=== PATIENT | female | born 1980 | race Two or more races ===

== ENCOUNTER 2016-10-07 00:39 | Emergency (ER) | payer BC, MEDICAID ==
[~2016-10-07] VITALS: Ht 149.9 cm; Wt 86.2 kg
[2016-10-07] MEDS ORDERED: ALBUTEROL SULF 2.5 MG/0.5ML(0.5%) NEB SOLN NEB ONE (01:15)
[2016-10-07] MEDS ORDERED: IPRATROPIUM BROM 0.5 MG/2.5ML INH SOL NEB ONE (01:15)
[2016-10-07 01:18] LABS: Basophils # (auto) 0.1 uL; Basophils % (auto) 0.6 % (0.0-2.0); Eosinophils # (auto) 0.5 uL; Eosinophils % (auto) 3.9 % (0.0-7.0); Hemoglobin 14.2 g/dL (12.2-16.2); Lymphocytes # (auto) 3.7 uL; Lymphocytes % (auto) 27.9 % (10.0-50.0); Mean Corpuscular Hemoglobin 29.8 pg (28.0-32.0); Mean Corpuscular Hgb Conc. 33.9 g/dL (32.0-36.0); Mean Corpuscular Volume 87.9 fL (80.0-100.0); Mean Platelet Volume 8.1 fL (7.4-10.4); Monocytes # (auto) 0.7 uL; Monocytes % (auto) 5.3 % (0.0-12.0); Neutrophils # (auto) 8.3 uL; Neutrophils % (auto) 62.3 % (37.0-80.0); Platelet Count (auto) 366 10^3/uL (140-450); Red Cell Distribution Width 13.5 % (11.6-16.0); White Blood Cell 13.4 10^3/uL (4.4-10.8)
[2016-10-07 01:19] LABS: Urine RBC None Seen /hpf (0 - 4)
[2016-10-07 01:39] LABS: Urine Bilirubin Negative (Negative); Urine Blood Negative /uL (Negative); Urine Color Yellow (Yellow); Urine Glucose Normal (Normal); Urine Ketone Negative (Negative); Urine Mucus FEW (None Seen); Urine Nitrite Negative (Negative); Urine Squamous Epithelial Cell FEW /hpf (<5); Urine Urobilinogen Normal (Negative); Urine pH 5.5 (5.0-8.0)
[2016-10-07 01:40] LABS: Albumin 3.9 g/dL (3.4-5.0); Alkaline Phosphatase 83 U/L (45-117); Anion Gap 12 (5-15); Aspartate Aminotransferase 20 U/L (15-37); BUN/Creatinine Ratio 15.2; Bilirubin, Total 0.2 mg/dL (0.2-1.0); Blood Urea Nitrogen 12 mg/dL (7-18); Calcium 8.8 mg/dL (8.5-10.1); Carbon Dioxide 24 mmol/L (21-32); Chloride 108 mmol/L (98-107); GFR African American 107 mL/min; GFR Non-African American 89 mL/min; Glucose 126 mg/dL (74-106); Potassium 3.5 mmol/L (3.5-5.1); Sodium 144 mmol/L (136-145); Total Protein 7.6 g/dL (6.4-8.2)
[2016-10-07 07:12] VITALS: BP 112/70
== END 2016-10-07 07:50 | disposition home or self-care (01) ==
LOC: ER 00:41
DX: F41.0 Panic disorder [episodic paroxysmal anxiety] (principal); R00.2 Palpitations; F17.210 Nicotine dependence, cigarettes, uncomplicated
CPT/HCPCS: 36415; 71020; 80053; 81001; 81025; 84484; 85025; 85379; 93005; 94640

== ENCOUNTER 2019-02-01 02:15 | Emergency (ER) | payer MEDICAID ==
[~2019-02-01] VITALS: Ht 149.9 cm; Wt 85.7 kg
[2019-02-01 02:27] VITALS: BP 156/113
[2019-02-01] MEDS ORDERED: diphenhdrAMINE HCL 25 MG CAP PO ONE (02:30)
== END 2019-02-01 04:52 | disposition home or self-care (01) ==
LOC: ER 02:16
DX: B00.1 Herpesviral vesicular dermatitis (principal); F17.210 Nicotine dependence, cigarettes, uncomplicated

== ENCOUNTER 2025-02-16 16:45 | Inpatient (IN) | payer MEDICAID ==
[~2025-02-16] VITALS: Ht 149.9 cm; Wt 86.8 kg
--- NOTE | 2025-02-16 17:05 | ED.PDOC ---
History of Present Illness HPI Comments This is a 44-year-old female with past medical history of Graves disease presented to the ED with a chief complaint of epigastric pain, nausea, vomiting and diarrhea since Wednesday prior to this visit. The patient stated that since Wednesday she was feeling generalized weakness, nausea, vomiting not able to keep anything down the throat and diarrhea which is liquid in nature, 8-10 times per day. She also complaint of epigastric pain which is localized, colicky in nature, 6 out 10 without any aggravating or relieving factors and associated with nausea, vomiting and diarrhea. She did mentioned using Zepbound for weight loss and took 3 shots. She denies fever, dysuria, hematuria, hematemesis, blood in the stool, positive sick contact, recent traveling or tried any food from outside. 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 History Family History Family History: Unknown Social History Smoker: Cigarettes Alcohol: Denies ETOH Use Drugs: Denies Drug Use Lives In: Home Constitutional: reports: chills, weakness; denies: diaphoresis, fatigue, fever, malaise, sweats, others EENTM: denies: blurred vision, double vision, ear bleeding, ear discharge, ear drainage, ear pain, ear ringing, eye pain, eye redness, hearing loss, mouth pain, mouth swelling, nasal discharge, nose bleeding, nose congestion, nose pain, photophobia, tearing, throat pain, throat swelling, voice changes, others Respiratory: denies: cough, hemoptysis, orthopnea, SOB at rest, shortness of breath, SOB with excertion, stridor, wheezing, others Cardiovascular: denies: chest pain, dizzy spells, diaphoresis, Dyspnea on exertion, edema, irregular heart beat, left arm pain, lightheadedness, palpitations, PND, syncope, others Gastrointestinal: reports: abdominal pain, diarrhea, nausea, vomiting; denies: abdomen distended, blood streaked bowels, constipated, dysphagia, difficulty swallowing, hematemesis, melena, poor appetite, poor fluid intake, rectal bleeding, rectal pain, others Genitourinary: denies: abnormal vagina bleeding, burning, dyspareunia, dysuria, flank pain, frequency, hematuria, incontinence, pain, , vagina discharge, urgency, others Neurological: denies: dizziness, fainting, headache, left sided numbness, left sided weakness, numbness, paresthesia, pre-existing deficit, right sided numbness, right sided weakness, seizure, speech problems, tingling, tremors, weakness, others Musculoskeletal: denies: back pain, gout, joint pain, joint swelling, muscle pain, muscle stiffness, neck pain, others Integumetry: denies: bruises, change in color, change in hair/nails, dryness, laceration, lesions, lumps, rash, wounds, others Allergic/Immunocompromised: denies: Difficulty Healing, Frequent Infections, Hives, Itching, others Hematologic/Lymphatic: denies: anemia, blood clots, easy bleeding, easy bruising, swollen glands, others Endocrine: denies: excessive hunger, excessive sweating, excessive thirst, excessive urination, flushing, intolerance to cold, intolerance to heat, unexplained weight gain, unexplained weight loss, others Psychiatric: denies: anxiety, bipolar disorder, depression, hopeless, panic disorder, schizophrenia, sleepless, suicidal, others Physical Exam General Appearance: Mild Distress (Dry mucous membrane) HEENT: Normal ENT Inspection, Pharynx Normal, TMs Normal, Other (Dry mucous membrane) Neck: Full Range of Motion, Non-Tender, Normal, Normal Inspection Respiratory: Chest Non-Tender, Lungs Clear, No Accessory Muscle Use, No Respiratory Distress, Normal Breath Sounds Cardiovascular: No Edema, No JVD, No Murmur, No Gallop, Normal Peripheral Pulses, Regular Rate/Rhythm Breast Exam: Deferred Gastrointestinal: Epigastric, No Organomegaly, No Pulsatile Mass, Normal Bowel Sounds, Tenderness Genitalia: Deferred Pelvic: Deferred Rectal: Deferred Extremities: No calf tenderness, Normal capillary refill, Normal inspection, Normal range of motion, Non-tender, No pedal edema 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 Was a procedure done?: No EKG EKG : Comments Sinus tachycardia Differential Dx Considerations may include: Gastroenteritis, diverticulitis, colitis, pancreatitis, gastritis, PUD, medication induced Zepbound X-Ray, Labs, Meds, VS Vital Signs Date Time Temp Pulse Resp B/P (MAP) Pulse Ox O2 Delivery O2 Flow Rate FiO2 02/16/25 16:45 98.4 134 16 141/84 97 98.4 02/16/25 16:45 135 Lab Test 02/16/25 18:20 Range/Units White Blood Count 10.2 4.4-10.8 10^3/uL Red Blood Count 5.01 4.0-5.20 10^6/uL Hemoglobin 14.7 12.2-16.2 g/dL Hematocrit 43.3 36.0-46.0 % Mean Corpuscular Volume 86.5 80.0-100.0 fL Mean Corpuscular Hemoglobin 29.3 28.0-32.0 pg Mean Corpuscular Hemoglobin Concent 33.8 32.0-36.0 g/dL Red Cell Distribution Width 12.4 11.8-14.3 % Platelet Count 346 140-450 10^3/uL Mean Platelet Volume 8.1 6.9-10.8 fL Neutrophils (%) (Auto) 62.1 37.0-80.0 % Lymphocytes (%) (Auto) 27.1 10.0-50.0 % Monocytes (%) (Auto) 8.1 0.0-12.0 % Eosinophils (%) (Auto) 2.1 0.0-7.0 % Basophils (%) (Auto) 0.6 0.0-2.0 % Neutrophils # (Auto) 6.3 1.6-8.6 10 ^3/uL Lymphocytes # (Auto) 2.8 0.4-5.4 10 ^3/uL Monocytes # (Auto) 0.8 0-1.3 10 ^3/uL Eosinophils # (Auto) 0.2 0-0.8 10 ^3/uL Basophils # (Auto) 0.1 0-0.2 10 ^3/uL Nucleated Red Blood Cells 0.1 % Sodium Level 140 136-145 mmol/L Potassium Level 4.5 3.5-5.1 mmol/L Chloride Level 109 H 98-107 mmol/L Carbon Dioxide Level 19 L 20-31 mmol/L Anion Gap 12 5-15 Blood Urea Nitrogen 22 9-23 mg/dL Creatinine 0.58 0.550-1.02 mg/dL Glomerular Filtration Rate Calc 116 >90 mL/min BUN/Creatinine Ratio 37.9 H 10.0-20.0 Serum Glucose 98 74-106 mg/dL Calcium Level 9.3 8.7-10.4 mg/dL Total Bilirubin 0.4 0.2-1.0 mg/dL Aspartate Amino Transferase (AST) 39 13-40 U/L Alanine Aminotransferase (ALT) 55 H 7-40 U/L Alkaline Phosphatase 74 46-116 U/L Total Protein 6.7 5.7-8.2 g/dL Albumin 4.1 3.2-4.8 g/dL Lipase 38 12-53 U/L Current Medications Medications (Trade) Dose Ordered Sig/Lianet Route Start Time Stop Time Status Last Admin Sodium Chloride 1,000 ml @ 1,000 mls/hr Q1H ONCE IV 02/16/25 17:15 02/16/25 18:14 DC 02/16/25 18:06 Ondansetron HCl (Zofran) 4 mg ONCE ONCE IV 02/16/25 17:15 02/16/25 17:48 DC 02/16/25 18:06 X-Ray, Labs, Meds, VS Comment COMPUTERIZED TOMOGRAPHY ABDOMEN AND PELVIS WITHOUT CONTRAST REASON FOR EXAM: Epigastric pain COMPARISON: None TECHNIQUE: Spiral scans were acquired from the diaphragm to the symphysis pubis without intravenous contrast administration. 2-D coronal and sagittal reformatted images were provided. Radiation optimization: All CT scans at this facility use at least one of these dose optimization techniques: Automated exposure control mA and/or kV adjustment per patient size (includes targeted exams where dose is matched to clinical indication) or iterative reconstruction. RADIATION DOSE: CTDI: 21.51 mGy DLP: 1016.39 mGy-cm FINDINGS: The visualized lung bases are clear. There is no pleural effusion. There is no pericardial effusion. The spleen is not enlarged. The liver is normal in size and contour. Evaluation of the abdominal organs is suboptimal in the absence of intravenous contrast. No calcified gallstone is identified. Unenhanced appearance of the pa ncreas is unremarkable. There is a small hiatal hernia. The adrenal glands are normal. The kidneys are similar in size. There is no hydronephrosis of either kidney. There is no renal, ureteral, or bladder calculus. There is no abdominal aortic aneurysm. There is no pathologic lymphadenopathy by size criteria. No free fluid is identified in the abdomen or pelvis. There is no distention of the small bowel to suggest obstruction. The uterus is within normal limits. There are 1.6 cm right and 1.8 cm left ovarian follicles. There is no significant colonic stool burden. The appendix is normal. No acute osseous abnormality is identified. IMPRESSION: No acute finding to explain the patient's epigastric abdominal pain. Small hiatal hernia. Normal appendix. No evidence of bowel obstruction. Images Reviewed?: Images reviewed and evaluated by me Time of 1ST Reevaluation: 18:40 Reevaluation 1ST: Improved Patient Education/Counseling: Other Family Education/Counseling: No Family Present Comments This is a 44-year-old female with a history of Graves disease presented to the ER with a complaint of nausea ,vomiting and diarrhea since Wednesday prior to this visit. Initially patient was tachycardic at 134 EKG demonstrated sinus tachycardia CBC and BMP were unremarkable, lipase was normal CT abdomen pelvis without contrast demonstrated normal study U/A revealed normal The patient was given NS 1 L bolus and IV ondansetron 4 mg once 1st re-evaluation patient is still tachycardic at 128, BP 110/70 and still complaining of nausea and vomiting The patient will need inpatient admission for further management SEPSIS Sepsis Screen Physician Orders Urinalysis (02/16/25 17:02) Ct Ab Pel Wo Con-No Oral Or Iv (02/16/25 17:02) Vital Signs Date Time Temp Pulse Resp B/P (MAP) Pulse Ox O2 Delivery O2 Flow Rate FiO2 02/16/25 16:45 98.4 134 16 141/84 97 98.4 02/16/25 16:45 135 Laboratory Tests Test 02/16/25 18:20 White Blood Count 10.2 10^3/uL (4.4-10.8) Medications Medications Dose Ordered Sig/Lianet Route Start Time Stop Time Status Last Admin Dose Admin Ondansetron HCl 4 mg ONCE ONCE IV 02/16/25 17:15 02/16/25 17:48 DC 02/16/25 18:06 Sodium Chloride 1,000 ml @ 1,000 mls/hr Q1H ONCE IV 02/16/25 17:15 02/16/25 18:14 DC 02/16/25 18:06 Departure 1 Departure Time of Disposition: 19:32 Impression: Primary Impression: Intractable nausea and vomiting Additional Impression: Tachycardia Disposition: ADMITTED INPATIENT Admit to: Med Surg Condition: Guarded Critical Care Note Critical Care Time?: No Stability Stability form required: ALTA Rosario RESIDENT Feb 16, 2025 17:05
[2025-02-16] MEDS: ONDANSETRON HCL 4 MG/2 ML VIAL IV ONE (18:06)
[2025-02-16] MEDS: SODIUM CHLORIDE 0.9% 1,000 ML IV ONE (18:06)
--- NOTE | 2025-02-16 18:06 | DVH ---
COMPUTERIZED TOMOGRAPHY ABDOMEN AND PELVIS WITHOUT CONTRAST REASON FOR EXAM: Epigastric pain COMPARISON: None TECHNIQUE: Spiral scans were acquired from the diaphragm to the symphysis pubis without intravenous c ontrast administration. 2-D coronal and sagittal reformatted images were provided. Radiation optimiza tion: All CT scans at this facility use at least one of these dose optimization techniques: Automated exposure control mA and/or kV adjustment per patient size (includes targeted exams where dose is mat ched to clinical indication) or iterative reconstruction. RADIATION DOSE: CTDI: 21.51 mGy DLP: 1016.39 mGy-cm FINDINGS: The visualized lung bases are clear. There is no pleural effusion. There is no pericardial effusion. The spleen is not enlarged. The liver is normal in size and contour. Evaluation of the abdominal or daisy is suboptimal in the absence of intravenous contrast. No calcified gallstone is identified. Une nhanced appearance of the pancreas is unremarkable. There is a small hiatal hernia. The adrenal glan ds are normal. The kidneys are similar in size. There is no hydronephrosis of either kidney. There is no renal, ureteral, or bladder calculus. There is no abdominal aortic aneurysm. There is no pathol ogic lymphadenopathy by size criteria. No free fluid is identified in the abdomen or pelvis. There is no distention of the small bowel to suggest obstruction. The uterus is within normal limits. There are 1.6 cm right and 1.8 cm left ovarian follicles. There is no significant colonic stool burden. Th e appendix is normal. No acute osseous abnormality is identified. IMPRESSION: No acute finding to explain the patient's epigastric abdominal pain. Small hiatal hernia. Normal appendix. No evidence of bowel obstruction.
[2025-02-16 18:56] LABS: Hematocrit 43.3 % (36.0-46.0); Hemoglobin 14.7 g/dL (12.2-16.2); Mean Corpuscular Hemoglobin 29.3 pg (28.0-32.0); Mean Corpuscular Volume 86.5 fL (80.0-100.0); Nucleated Red Blood Cells % 0.1 %
[2025-02-16 19:11] LABS: Alkaline Phosphatase 74 U/L (46-116); Anion Gap 12 (5-15); BUN/Creatinine Ratio 37.9 (10.0-20.0); Blood Urea Nitrogen 22 mg/dL (9-23); Calcium 9.3 mg/dL (8.7-10.4); Glucose 98 mg/dL (74-106); Lipase 38 U/L (12-53); Potassium 4.5 mmol/L (3.5-5.1); Sodium 140 mmol/L (136-145); Total Protein 6.7 g/dL (5.7-8.2)
[2025-02-16 19:12] LABS: Albumin 4.1 g/dL (3.2-4.8); Bilirubin, Total 0.4 mg/dL (0.2-1.0)
[2025-02-16 19:13] LABS: Alanine Aminotransferase 55 U/L (7-40); Carbon Dioxide 19 mmol/L (20-31); Chloride 109 mmol/L (98-107)
--- NOTE | 2025-02-16 19:44 | ECG ---
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
[2025-02-16] MEDS ORDERED: ACETAMINOPHEN 325 MG TAB PO PRN (22:15)
[2025-02-16] MEDS ORDERED: ONDANSETRON HCL 4 MG/2 ML VIAL IV PRN ×2 (22:15)
[2025-02-16 22:35] LABS: Urine Protein, UAD 1+ (Negative)
[2025-02-16 23:15] VITALS: BP 118/76; PULSE 124; RESP 19; TEMP 98.1; O2SAT 97
[2025-02-16 23:30] VITALS: BP 118/76; PULSE 124; RESP 19; TEMP 98.1; O2SAT 97
[2025-02-16 23:51] VITALS: PULSE 124; RESP 19; O2SAT 97
--- NOTE | 2025-02-16 23:51 | DVHHPRES ---
History of Present Illness Resident Creating Document: DANISHA HOWE RESIDENT History of Present Illness Ramnoa Cody is a 44-year-old female, with past medical history of Graves disease, pre-diabetes and anxiety. The patient presented to the ED with a chief complaint of 3 weeks of intermittent epigastric pain 3/10, burning-like, associated with nausea and linked to food. The patient reports, two days ago the epigastric pain increase in intensity and is associated with generalized weakness, nausea, vomiting # 7 of gastric content and watery diarrhea #8. The patient denies chills, fever, dysuria, hematuria, hematemesis, hematochezia, new diet, sick contacts or recent traveling. On the initial evaluation the patient is tachycardic 133bpm, Lipase is 38, abdominal CT scan showed: small hiatal hernia. The patient will be admitted for further assessments and management. Psych: Anxiety Endocrine: Hyperthyroidism (Graves disease. The patient states she is not taking any medication for this condition. ) Past Surgical History: Family History: None Smoke: <1 pack per day ALCOHOL: none Drugs: None Lives: with Family Review of Systems Constitutional: Yes: Weakness Eyes: No: Pain, Vision change, Conjunctivae inflammation, Eyelid inflammation, Other, Redness ENT: No: Ear pain, Ear discharge, Nose pain, Nose discharge, Nose congestion, Mouth pain, Mouth swelling, Throat pain, Throat swelling, Other Respiratory: No: Cough, Dry, Shortness of breath, SOB with excertion, Wheezing, Hemoptysis, Pleuritic Pain, Sputum, Wheezing, Other Cardiovascular: No: Chest Pain, Palpitations, Orthopnea, Paroxysmal Noc. Dyspnea, Edema, Lt Headedness, Other Gastrointestinal: Nausea, Vomiting, Abdominal Pain, Diarrhea; No: Constipation, Melena, Hematochezia, Other Genitourinary: No Dysuria, No Frequency, No Incontinence, No Hematuria, No Retention, No Other Musculoskeletal: No: other, neck pain, shoulder pain, arm pain, back pain, hand pain, leg pain, foot pain Skin: No: Rash, Lesions, Jaundice, Bruising, Other Neurological: No: Weakness, Numbness, Incoordination, Change in speech, Confusion, Seizures, Other Allergies: Coded Allergies: NO KNOWN ALLERGIES (Unverified , 02/01/19) Medications Current Medications Medications Dose Ordered Sig/Lianet Route Start Time Stop Time Status Last Admin Dose Admin Acetaminophen 650 mg Q6HP PRN PO 02/16/25 22:15 Acetaminophen/ Hydrocodone Bitart 1 tab Q4HP PRN PO 02/16/25 22:15 Ondansetron HCl 4 mg Q4HP PRN IV 02/16/25 22:15 Pantoprazole Sodium 40 mg BID IV 02/17/25 10:00 Sodium Chloride 1,000 ml @ 75 mls/hr [id number] IV 02/16/25 23:00 Ceftriaxone Sodium 50 ml @ 100 mls/hr DAILY@09 IV 02/17/25 00:00 UNV Exam Vital Signs Vital Signs Date Time Temp Pulse Resp B/P (MAP) Pulse Ox O2 Delivery O2 Flow Rate FiO2 02/16/25 22:54 132 02/16/25 22:34 98.3 20 127/59 (81) 97 98.3 02/16/25 22:34 Room Air* 0 21 General Appearance: Alert, Oriented X3, Cooperative, mild distress HEENT: Atraumatic, Mucous membr. moist/pink Respiratory: Clear to auscultation, Normal air movement Cardiovascular: Regular rate, Normal S1, Normal S2, No murmurs Abdominal: Soft, Other (Soft, depressible, positive bowel sounds, tendernes to deep palpation over epigastric, no rebound, no resistance. ) Extremities: No clubbing, No cyanosis, No edema, Normal pulses, No tenderness/swelling Skin: No rashes, No breakdown, No significant lesion Neuro: Normal gait, Normal speech, Strength at 5/5 X4 ext, Normal tone, Sensation intact, Cranial nerves 3-12 NL Psych/Mental Status: Mental status NL, Mood NL Labs/Xrays Labs Test 02/16/25 21:04 02/16/25 18:20 Range/Units Urine Color Yellow Yellow Urine Clarity Turbid H Clear Urine pH 5.0 5.0-9.0 Urine Specific [place] 1.029 1.001-1.035 Urine Protein 1+ H Negative Urine Ketones 4+ H Negative Urine Blood 2+ H Negative /uL Urine Nitrite Negative Negative Urine Bilirubin Negative Negative Urine Urobilinogen Normal Negative mg/dL Urine Leukocyte Esterase 3+ Negative /uL Urine RBC 8 0 - 4 /hpf Urine Microscopic WBC 21 H 0-5 /HPF Urine Squamous Epithelial Cells Mod <5 /hpf Urine Bacteria None seen None Seen /hpf Urine Mucus Few None Seen Urine Glucose Normal Normal mg/dL White Blood Count 10.2 4.4-10.8 10^3/uL Red Blood Count 5.01 4.0-5.20 10^6/uL Hemoglobin 14.7 12.2-16.2 g/dL Hematocrit 43.3 36.0-46.0 % Mean Corpuscular Volume 86.5 80.0-100.0 fL Mean Corpuscular Hemoglobin 29.3 28.0-32.0 pg Mean Corpuscular Hemoglobin Concent 33.8 32.0-36.0 g/dL Red Cell Distribution Width 12.4 11.8-14.3 % Platelet Count 346 140-450 10^3/uL Mean Platelet Volume 8.1 6.9-10.8 fL Neutrophils (%) (Auto) 62.1 37.0-80.0 % Lymphocytes (%) (Auto) 27.1 10.0-50.0 % Monocytes (%) (Auto) 8.1 0.0-12.0 % Eosinophils (%) (Auto) 2.1 0.0-7.0 % Basophils (%) (Auto) 0.6 0.0-2.0 % Neutrophils # (Auto) 6.3 1.6-8.6 10 ^3/uL Lymphocytes # (Auto) 2.8 0.4-5.4 10 ^3/uL Monocytes # (Auto) 0.8 0-1.3 10 ^3/uL Eosinophils # (Auto) 0.2 0-0.8 10 ^3/uL Basophils # (Auto) 0.1 0-0.2 10 ^3/uL Nucleated Red Blood Cells 0.1 % Sodium Level 140 136-145 mmol/L Potassium Level 4.5 3.5-5.1 mmol/L Chloride Level 109 H 98-107 mmol/L Carbon Dioxide Level 19 L 20-31 mmol/L Anion Gap 12 5-15 Blood Urea Nitrogen 22 9-23 mg/dL Creatinine 0.58 0.550-1.02 mg/dL Glomerular Filtration Rate Calc 116 >90 mL/min BUN/Creatinine Ratio 37.9 H 10.0-20.0 Serum Glucose 98 74-106 mg/dL Calcium Level 9.3 8.7-10.4 mg/dL Total Bilirubin 0.4 0.2-1.0 mg/dL Aspartate Amino Transferase (AST) 39 13-40 U/L Alanine Aminotransferase (ALT) 55 H 7-40 U/L Alkaline Phosphatase 74 46-116 U/L Total Protein 6.7 5.7-8.2 g/dL Albumin 4.1 3.2-4.8 g/dL Lipase 38 12-53 U/L Free Thyroxine (T4) Calculated 9.60 H 0.89-1.76 ng/dL SEPSIS Sepsis Screen Date sepsis recognized/suspect: Feb 16, 2025 Time Sepsis recognized/suspect: 2233 Recent Procedure: No On Antibiotic Therapy: Yes Respiratory Rate >20: No Heart Rate >90: Yes Temp<36 C (96.8 F) or >38.3 C: No SBP <90 or MAP <65 mmHG: No New Acute Mental Status Change: No Is the patient on CPAP, BIPAP,: No Physician Orders Ct Ab Pel Wo Con-No Oral Or Iv (02/16/25 17:02) Admit (02/16/25 22:03) Code Status (02/16/25 22:03) Vital Signs .PER UNIT PROTOCOL (02/16/25 22:03) Review Orders With Adm.Md (02/16/25 22:03) Acetaminophen Tablet (Tylenol Tablet) (02/16/25 22:15) Notify Md Of Changes From Base (02/16/25 22:03) Advance Directive (02/16/25 22:03) Basic Metabolic Panel (02/17/25 04:00) Complete Blood Count (02/17/25 04:00) Patient Condition (02/16/25 22:03) Allergies (02/16/25 22:03) Hydrocodone-Acet 5/325mg Tab (Almond 5/32 (02/16/25 22:15) Ondansetron Hcl (Zofran) (02/16/25 22:15) Notify Md Of Changes From Base (02/16/25 22:03) Clear Liq Diet (02/17/25 Breakfast) Pantoprazole (Protonix) (02/17/25 10:00) Electrocardigram (02/16/25 22:50) Thyroid Stimulating Hormone (02/16/25 22:53) Sodium Chloride 0.9% (02/16/25 23:00) Ceftriaxone 1gm/50ml D5w (Rocephin) (02/17/25 00:00) Vital Signs Date Time Temp Pulse Resp B/P (MAP) Pulse Ox O2 Delivery O2 Flow Rate FiO2 02/16/25 22:54 132 02/16/25 22:34 98.3 131 20 127/59 (81) 97 98.3 02/16/25 22:34 Room Air* 0 21 02/16/25 21:05 133 16 165/79 (107) 96 02/16/25 16:45 98.4 134 16 141/84 97 98.4 02/16/25 16:45 135 Laboratory Tests Test 02/16/25 18:20 White Blood Count 10.2 10^3/uL (4.4-10.8) Medications Medications Dose Ordered Sig/Lianet Route Start Time Stop Time Status Last Admin Dose Admin Ondansetron HCl 4 mg ONCE ONCE IV 02/16/25 17:15 02/16/25 17:48 DC 02/16/25 18:06 4 MG Sodium Chloride 1,000 ml @ 1,000 mls/hr Q1H ONCE IV 02/16/25 17:15 02/16/25 18:14 DC 02/16/25 18:06 1,000 MLS/HR Assessment/Plan Assessment/Plan #Intractable acute abdominal pain #Possible gastroenteritis bacterial vs viral #Possible Gastritis/GERD #PO Intolerance #Hiatal hernia #Moderated Dehydration IV fluids: NS Almond 10/325mg Zofran 4mg Pantoprazole 40mg Abd/pelvis CT scan Ceftriaxone 1g IV #UTI possible cystitis. IV fluids UA Positive Urine Culture Ceftriaxone 1g IV #Graves Disease TSH 0.01 T4 free 9.60 Methimazole 10mg Propranolol 20mg BID #Transaminitis Consider Liver US #Anxiety Medication reconciliation #Smoking Smoke cessation counselling >10 min #Obesity Life style modifications counselling Clear liquids diet DVT prophylaxis- ambulating. PUD prophylaxis Protonic. Goals of care discussed with the patient > 35 min. Discussed plan of care with Dr. Felder Code status: Full code PCP: Dr. Telles. Plan discussed with: Patient, the patient agrees with the admission plan. Plan discussed with: Patient My Orders Orders - DANISHA HOWE RESIDENT Procedure Category Date Status Time Admit ADMIT 02/16/25 Transmitted 22:03 Code Status CODE 02/16/25 Transmitted 22:03 Vital Signs DANY 02/16/25 In Process 22:03 Review Orders With DANY 02/16/25 In Process Adm. 22:03 Acetaminophen Tablet PHA 02/16/25 In Process (Tylenol Tablet) 22:15 Notify Md Of Changes DANY 02/16/25 In Process From Base 22:03 Advance Directive DANY 02/16/25 In Process 22:03 Basic Metabolic Panel LAB 02/17/25 Verified 04:00 Complete Blood Count LAB 02/17/25 Verified 04:00 Patient Condition ORDERS 02/16/25 Transmitted 22:03 Allergies DANY 02/16/25 In Process 22:03 Hydrocodone-Acet PHA 02/16/25 In Process 5/325mg Tab (Almond 22:15 Ondansetron Hcl PHA 02/16/25 In Process (Zofran) 22:15 Notify Md Of Changes DANY 02/16/25 In Process From Base 22:03 Clear Liq Diet DIET 02/17/25 Transmitted Breakfast Pantoprazole PHA 02/17/25 In Process (Protonix) 10:00 Electrocardigram EKG 02/16/25 Logged 22:50 Ceftriaxone 1gm/50ml PHA 02/17/25 Logged D5w (Rocephin) 00:00 Date of Service: Feb 16, 2025 Billing Provider: VITO FELDER MD Common Visit Codes: 98014-CATGQRD INP/OBS CARE (HIGH) Secondary Visit Codes: 76810-BOPIA CHNG SMOKING 3-10m, 96056-DMHDGTGY CARE PLAN 30 MINUTES DANISHA HOWE RESIDENT Feb 16, 2025 23:51
[2025-02-17] VITALS (8 sets, daily range): BP systolic 114–150; BP diastolic 55–77; PULSE 100–122; RESP 16–20; TEMP 97.6–98.3; O2SAT 95–98
[2025-02-17] MEDS ORDERED: BUPR150T8 PO (00:16)
[2025-02-17] MEDS ORDERED: PROM25TA10 PO (00:16)
[2025-02-17] MEDS ORDERED: TIRZ2.5I2 SC (00:16)
[2025-02-17] MEDS: SODIUM CHLORIDE 0.9% 1,000 ML IV SCH (00:22)
[2025-02-17] MEDS: cefTRIAXone 1GM/50ML D5W 50 ML IV ONE (00:23)
[2025-02-17] MEDS: methIMAzole 5 MG TAB PO ONE (03:21)
[2025-02-17] MEDS: KETOROLAC TROMETH 30 MG/ML 1ML VIAL IV ONE (03:21)
[2025-02-17] MEDS: PROPRANOLOL HCL 20 MG TAB PO SCH (03:26)
--- NOTE | 2025-02-17 06:02 | ECG ---
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
[2025-02-17 08:11] LABS: Anion Gap 10 (5-15); Calcium 9.5 mg/dL (8.7-10.4); Carbon Dioxide 22 mmol/L (20-31); Chloride 107 mmol/L (98-107); Potassium 3.9 mmol/L (3.5-5.1); Sodium 139 mmol/L (136-145)
[2025-02-17 08:17] LABS: BUN/Creatinine Ratio 28.1 (10.0-20.0); Blood Urea Nitrogen 16 mg/dL (9-23); Glucose 93 mg/dL (74-106)
[2025-02-17 08:41] LABS: Hematocrit 38.2 % (36.0-46.0); Hemoglobin 13.1 g/dL (12.2-16.2); Mean Corpuscular Hemoglobin 29.8 pg (28.0-32.0); Mean Corpuscular Volume 86.6 fL (80.0-100.0); Nucleated Red Blood Cells % 0.1 %
[2025-02-17] MEDS: PANTOPRAZOLE 40 MG/10 ML VIAL INJ IV SCH (09:24)
[2025-02-17] MEDS: HYDROcodone-ACET 5/325MG TAB PO PRN (09:25)
[2025-02-17 13:00] LABS: COVID19 ANTIGEN SOFIA FIA NEGATIVE (NEGATIVE)
--- NOTE | 2025-02-17 16:48 | DVHPN2 ---
Subjective I am assuming the care of the patient from today onwards who is here for intractable abdominal pain nausea and vomiting found to have possible viral gastroenteritis. Patient is also has a history of Graves disease currently has hyperthyroidism. Patient is currently not in thyroid storm. Changes from previous H/P or p: No Changes Eyes: No Pain, No Vision change, No Conjunctivae inflammation, No Eyelid inflammation, No Other, No Redness ENT: No Ear pain, No Ear discharge, No Nose pain, No Nose discharge, No Nose congestion, No Mouth pain, No Mouth swelling, No Throat pain, No Throat swelling, No Other Cardiovascular: No Chest Pain, No Palpitations, No Orthopnea, No Paroxysmal Noc. Dyspnea, No Edema, No Lt Headedness, No Other Respiratory: No Cough, No Dry, No Shortness of breath, No SOB with excertion, No Wheezing, No Hemoptysis, No Pleuritic Pain, No Sputum, No Other Gastrointestinal: Nausea, Vomiting, Abdominal Pain, Diarrhea; No Constipation, No Melena, No Hematochezia, No Other Genitourinary: No Dysuria, No Frequency, No Incontinence, No Hematuria, No Retention, No Other Musculoskeletal: No other, No neck pain, No shoulder pain, No arm pain, No back pain, No hand pain, No leg pain, No foot pain Skin: No Rash, No Lesions, No Jaundice, No Bruising, No Other Objective Vitals Vital Signs Date Time Temp Pulse Resp B/P (MAP) Pulse Ox O2 Delivery O2 Flow Rate FiO2 02/17/25 12:44 97.8 105 20 114/55 (74) 98 97.8 02/17/25 08:00 Room Air* 0 21 Intake/Output Intake and Output 02/17/25 07:00 Intake Total 1000 ml Balance 1000 ml Intake Oral 500 ml IV Total 500 ml # Voids 1 # Bowel Movements 1 Exam HEENT pupils are reactive Neck is supple CV is S1-S2 regular rate and rhythm Respiratory are clear GI positive bowel sounds soft nondistended nontender no guarding no rigidity Extremity no edema [employer] no motor deficit Medications Current Medications Medications Dose Ordered Sig/Lianet Route Start Time Stop Time Status Last Admin Dose Admin Acetaminophen 650 mg Q6HP PRN PO 02/16/25 22:15 Acetaminophen/ Hydrocodone Bitart 1 tab Q4HP PRN PO 02/16/25 22:15 02/17/25 09:25 1 TAB Ondansetron HCl 4 mg Q4HP PRN IV 02/16/25 22:15 Pantoprazole Sodium 40 mg BID IV 02/17/25 10:00 02/17/25 09:24 40 MG Sodium Chloride 1,000 ml @ 75 mls/hr [id number] IV 02/16/25 23:00 02/17/25 12:48 75 MLS/HR Ceftriaxone Sodium 50 ml @ 100 mls/hr DAILY@09 IV 02/18/25 09:00 Propranolol HCl 20 mg BID PO 02/17/25 02:15 02/17/25 09:25 20 MG Methimazole 10 mg Q8HR PO 02/17/25 22:00 02/18/25 18:00 UNV Laboratory Results Laboratory Tests 02/17/25 05:58 Chemistry Test 02/16/25 18:20 02/17/25 05:58 Albumin 4.1 g/dL (3.2-4.8) Calcium Level 9.3 mg/dL (8.7-10.4) 9.5 mg/dL (8.7-10.4) Total Protein 6.7 g/dL (5.7-8.2) Lipid panel Test 02/16/25 18:20 Lipase 38 U/L (12-53) LFT Test 02/16/25 18:20 Alanine Aminotransferase (ALT) 55 U/L (7-40) H Alkaline Phosphatase 74 U/L (46-116) Aspartate Amino Transferase (AST) 39 U/L (13-40) Total Bilirubin 0.4 mg/dL (0.2-1.0) HgA1c, TSH Test 02/16/25 18:20 02/17/25 05:58 Thyroid Stimulating Hormone (TSH) < 0.01 uIU/mL (0.55-4.78) L Hemoglobin A1c 5.4 % A1C (<5.7) Urinalysis Test 02/16/25 21:04 Urine Color Yellow (Yellow) Urine Clarity Turbid (Clear) H Urine pH 5.0 (5.0-9.0) Urine Specific [place] 1.029 (1.001-1.035) Urine Protein 1+ (Negative) H Urine Ketones 4+ (Negative) H Urine Blood 2+ /uL (Negative) H Urine Nitrite Negative (Negative) Urine Bilirubin Negative (Negative) Urine Urobilinogen Normal mg/dL (Negative) Urine Leukocyte Esterase 3+ /uL (Negative) Urine RBC 8 /hpf (0 - 4) Urine Microscopic WBC 21 /HPF (0-5) H Urine Squamous Epithelial Cells Mod /hpf (<5) Urine Bacteria None seen /hpf (None Seen) Urine Mucus Few (None Seen) Urine Glucose Normal mg/dL (Normal) Assessment/Plan Assessment/Plan 44-year-old female with a known history of Graves disease, anxiety disorder, morbid obesity classII chronic tobacco use disorder initially presented to the hospital with the abdominal pain nausea and vomiting found to have 1. Acute viral gastroenteritis 2. Hyperthyroidism with a history of Graves disease with a low TSH and high free T4 contributing to the symptoms of nausea and vomiting on and anxiety 3. Graves disease 4. UTI 5. Transaminitis 6. Morbid obesity classII 7. Chronic tobacco use disorder -increase methimazole to 10 mg q.8 hours, repeat TSH free-T4, Once symptoms are better patient can be discharged. Plan discussed with: Patient My Orders Orders - CADENCE PHAM MD Procedure Category Date Status Time Thyroid Stimulating LAB 02/18/25 Verified Hormone 04:00 Free T4 (Free LAB 02/18/25 Verified Thyroxine) 04:00 Full Liq Diet DIET 02/17/25 Transmitted Dinner Communication Order ORDERS 02/17/25 Transmitted 15:15 Methimazole Tab PHA 02/17/25 Logged (Tapazole) 22:00 Comprehensive LAB 02/18/25 Verified Metabolic Panel 04:00 Date of Service: Feb 17, 2025 Billing Provider: CADENCE PHAM MD Common Visit Codes: [id number] INP/OBS CARE(MOD) CADENCE PHMA MD Feb 17, 2025 16:48
[2025-02-17] MEDS: methIMAzole 5 MG TAB PO SCH (21:21)
[2025-02-18] VITALS (8 sets, daily range): BP systolic 108–142; BP diastolic 57–81; PULSE 96–115; RESP 16–20; TEMP 96–98.2; O2SAT 96–98
[2025-02-18 08:26] LABS: Albumin 3.9 g/dL (3.2-4.8); Alkaline Phosphatase 67 U/L (46-116); Anion Gap 9 (5-15); BUN/Creatinine Ratio 26.5 (10.0-20.0); Bilirubin, Total 0.4 mg/dL (0.2-1.0); Blood Urea Nitrogen 13 mg/dL (9-23); Calcium 9.8 mg/dL (8.7-10.4); Carbon Dioxide 25 mmol/L (20-31); Glucose 98 mg/dL (74-106); Potassium 4.1 mmol/L (3.5-5.1); Sodium 143 mmol/L (136-145); Total Protein 6.1 g/dL (5.7-8.2)
[2025-02-18 08:32] LABS: Alanine Aminotransferase 63 U/L (7-40); Chloride 109 mmol/L (98-107)
[2025-02-18] MEDS: cefTRIAXone 1GM/50ML D5W 50 ML IV SCH (08:40)
[2025-02-18] MEDS ORDERED: methIMAzole 5 MG TAB PO SCH (10:00)
--- NOTE | 2025-02-18 16:57 | DVHPN2 ---
Subjective Patient is complaining of mild epigastric discomfort, Tapazole was increased yesterday. Repeat TSH free T4 are pending. Changes from previous H/P or p: No Changes Eyes: No Pain, No Vision change, No Conjunctivae inflammation, No Eyelid inflammation, No Other, No Redness ENT: No Ear pain, No Ear discharge, No Nose pain, No Nose discharge, No Nose congestion, No Mouth pain, No Mouth swelling, No Throat pain, No Throat swelling, No Other Cardiovascular: No Chest Pain, No Palpitations, No Orthopnea, No Paroxysmal Noc. Dyspnea, No Edema, No Lt Headedness, No Other Respiratory: No Cough, No Dry, No Shortness of breath, No SOB with excertion, No Wheezing, No Hemoptysis, No Pleuritic Pain, No Sputum, No Other Gastrointestinal: Nausea, Vomiting, Abdominal Pain, Diarrhea; No Constipation, No Melena, No Hematochezia, No Other Genitourinary: No Dysuria, No Frequency, No Incontinence, No Hematuria, No Retention, No Other Musculoskeletal: No other, No neck pain, No shoulder pain, No arm pain, No back pain, No hand pain, No leg pain, No foot pain Skin: No Rash, No Lesions, No Jaundice, No Bruising, No Other Objective Vitals Vital Signs Date Time Temp Pulse Resp B/P (MAP) Pulse Ox O2 Delivery O2 Flow Rate FiO2 02/18/25 13:00 96.0 96 19 108/79 (89) 96 96.0 02/18/25 08:00 Room Air* 0 21 Intake/Output Intake and Output 02/18/25 07:00 Intake Total 1265 ml Output Total 800 ml Balance 465 ml Intake Oral 1265 ml Output Urine Total 800 ml # Voids 2 Exam HEENT pupils are reactive Neck is supple CV is S1-S2 regular rate and rhythm Respiratory are clear GI positive bowel sounds soft nondistended nontender no guarding no rigidity Extremity no edema 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 Medications Current Medications Medications Dose Ordered Sig/Lianet Route Start Time Stop Time Status Last Admin Dose Admin Acetaminophen 650 mg Q6HP PRN PO 02/16/25 22:15 Acetaminophen/ Hydrocodone Bitart 1 tab Q4HP PRN PO 02/16/25 22:15 02/17/25 21:27 1 TAB Ondansetron HCl 4 mg Q4HP PRN IV 02/16/25 22:15 Pantoprazole Sodium 40 mg BID IV 02/17/25 10:00 02/18/25 08:39 40 MG Sodium Chloride 1,000 ml @ 75 mls/hr [id number] IV 02/16/25 23:00 02/18/25 15:28 75 MLS/HR Ceftriaxone Sodium 50 ml @ 100 mls/hr DAILY@09 IV 02/18/25 09:00 02/18/25 08:40 100 MLS/HR Propranolol HCl 20 mg BID PO 02/17/25 02:15 02/18/25 08:40 20 MG Methimazole 10 mg Q8HR PO 02/17/25 22:00 02/18/25 18:00 02/18/25 15:28 10 MG Laboratory Results Laboratory Tests 02/17/25 05:58 02/18/25 06:20 Chemistry Test 02/18/25 06:20 Albumin 3.9 g/dL (3.2-4.8) Calcium Level 9.8 mg/dL (8.7-10.4) Total Protein 6.1 g/dL (5.7-8.2) LFT Test 02/18/25 06:20 Alanine Aminotransferase (ALT) 63 U/L (7-40) H Alkaline Phosphatase 67 U/L (46-116) Aspartate Amino Transferase (AST) 48 U/L (13-40) H Total Bilirubin 0.4 mg/dL (0.2-1.0) HgA1c, TSH Test 02/18/25 06:20 Thyroid Stimulating Hormone (TSH) < 0.01 uIU/mL (0.55-4.78) L Urinalysis Test 02/16/25 21:04 Urine Color Yellow (Yellow) Urine Clarity Turbid (Clear) H Urine pH 5.0 (5.0-9.0) Urine Specific [place] 1.029 (1.001-1.035) Urine Protein 1+ (Negative) H Urine Ketones 4+ (Negative) H Urine Blood 2+ /uL (Negative) H Urine Nitrite Negative (Negative) Urine Bilirubin Negative (Negative) Urine Urobilinogen Normal mg/dL (Negative) Urine Leukocyte Esterase 3+ /uL (Negative) Urine RBC 8 /hpf (0 - 4) Urine Microscopic WBC 21 /HPF (0-5) H Urine Squamous Epithelial Cells Mod /hpf (<5) Urine Bacteria None seen /hpf (None Seen) Urine Mucus Few (None Seen) Urine Glucose Normal mg/dL (Normal) Assessment/Plan Assessment/Plan 44-year-old female with a known history of Graves disease, anxiety disorder, morbid obesity classII chronic tobacco use disorder initially presented to the hospital with the abdominal pain nausea and vomiting found to have 1. Acute viral gastroenteritis 2. Hyperthyroidism with a history of Graves disease with a low TSH and high free T4 contributing to the symptoms of nausea and vomiting on and anxiety 3. Graves disease 4. UTI , urine culture is pending 5. Transaminitis 6. Morbid obesity classII 7. Chronic tobacco use disorder -follow up urine culture. -continue methimazole 10 mg q.8 hours repeat TSH free-T4, Once symptoms are better patient can be discharged. Plan discussed with: Patient My Orders Orders - CADENCE PHAM MD Procedure Category Date Status Time Soft Diet DIET 02/18/25 Transmitted Dinner Urine Bacterial FLORIDALMA 02/18/25 Uncollected Culture 16:24 Date of Service: Feb 18, 2025 Billing Provider: CADENCE PHAM MD Common Visit Codes: [id number] INP/OBS CARE(MOD) CADENCE PHAM MD Feb 18, 2025 16:57
[2025-02-19 01:00] VITALS: BP 131/66; PULSE 100; RESP 17; TEMP 97.6; O2SAT 93
[2025-02-19 05:00] VITALS: BP 123/59; PULSE 96; RESP 17; TEMP 97.7; O2SAT 100
[2025-02-19 08:00] VITALS: PULSE 100; RESP 16; O2SAT 98
[2025-02-19 09:27] VITALS: BP 114/64; PULSE 104; RESP 16; TEMP 97.6; O2SAT 99
[2025-02-19 12:58] VITALS: BP 126/67; PULSE 106; RESP 22; TEMP 97.2; O2SAT 100
[2025-02-19] MEDS ORDERED: CEPH500C PO (14:19)
--- NOTE | 2025-02-19 14:24 | DVHDS2 ---
Discharge Summary Date of Admission Feb 16, 2025 at 22:03 Date of Discharge: Feb 19, 2025 Labs/Diagnostic Data: Laboratory Results Test 02/19/25 07:00 02/18/25 06:20 02/17/25 11:25 02/17/25 05:58 Thyroid Stimulating Hormone (TSH) < 0.01 uIU/mL (0.55-4.78) Free Thyroxine (T4) Calculated 6.91 ng/dL (0.89-1.76) Sodium Level 143 mmol/L (136-145) Potassium Level 4.1 mmol/L (3.5-5.1) Chloride Level 109 mmol/L (98-107) Carbon Dioxide Level 25 mmol/L (20-31) Anion Gap 9 (5-15) Blood Urea Nitrogen 13 mg/dL (9-23) Creatinine 0.49 mg/dL (0.550-1.02) Glomerular Filtration Rate Calc 121 mL/min (>90) BUN/Creatinine Ratio 26.5 (10.0-20.0) Serum Glucose 98 mg/dL (74-106) Calcium Level 9.8 mg/dL (8.7-10.4) Total Bilirubin 0.4 mg/dL (0.2-1.0) Aspartate Amino Transferase (AST) 48 U/L (13-40) Alanine Aminotransferase (ALT) 63 U/L (7-40) Alkaline Phosphatase 67 U/L (46-116) Total Protein 6.1 g/dL (5.7-8.2) Albumin 3.9 g/dL (3.2-4.8) Influenza Type A Antigen Negative (Negative) Influenza Type B Antigen Negative (Negative) SARS-CoV-2 Antigen (Rapid) Negative (NEGATIVE) White Blood Count 9.1 10^3/uL (4.4-10.8) Red Blood Count 4.42 10^6/uL (4.0-5.20) Hemoglobin 13.1 g/dL (12.2-16.2) Hematocrit 38.2 % (36.0-46.0) Mean Corpuscular Volume 86.6 fL (80.0-100.0) Mean Corpuscular Hemoglobin 29.8 pg (28.0-32.0) Mean Corpuscular Hemoglobin Concent 34.4 g/dL (32.0-36.0) Red Cell Distribution Width 12.7 % (11.8-14.3) Platelet Count 308 10^3/uL (140-450) Mean Platelet Volume 8.6 fL (6.9-10.8) Neutrophils (%) (Auto) 40.1 % (37.0-80.0) Lymphocytes (%) (Auto) 43.6 % (10.0-50.0) Monocytes (%) (Auto) 9.5 % (0.0-12.0) Eosinophils (%) (Auto) 6.4 % (0.0-7.0) Basophils (%) (Auto) 0.4 % (0.0-2.0) Neutrophils # (Auto) 3.7 10 ^3/uL (1.6-8.6) Lymphocytes # (Auto) 4.0 10 ^3/uL (0.4-5.4) Monocytes # (Auto) 0.9 10 ^3/uL (0-1.3) Eosinophils # (Auto) 0.6 10 ^3/uL (0-0.8) Basophils # (Auto) 0 10 ^3/uL (0-0.2) Nucleated Red Blood Cells 0.1 % Hemoglobin A1c 5.4 % A1C (<5.7) Test 02/16/25 21:04 02/16/25 18:20 Urine Color Yellow (Yellow) Urine Clarity Turbid (Clear) Urine pH 5.0 (5.0-9.0) Urine Specific [place] 1.029 (1.001-1.035) Urine Protein 1+ (Negative) Urine Ketones 4+ (Negative) Urine Blood 2+ /uL (Negative) Urine Nitrite Negative (Negative) Urine Bilirubin Negative (Negative) Urine Urobilinogen Normal mg/dL (Negative) Urine Leukocyte Esterase 3+ /uL (Negative) Urine RBC 8 /hpf (0 - 4) Urine Microscopic WBC 21 /HPF (0-5) Urine Squamous Epithelial Cells Mod /hpf (<5) Urine Bacteria None seen /hpf (None Seen) Urine Mucus Few (None Seen) Urine Glucose Normal mg/dL (Normal) Lipase 38 U/L (12-53) Other Laboratory Tests 02/18/25 06:20 02/17/25 05:58 Brief Hx & Hospital Course: 44-year-old female with a known history of Graves disease, anxiety disorder, morbid obesity classII chronic tobacco use disorder initially presented to the hospital with the abdominal pain nausea and vomiting found to have acute viral gastroenteritis. Patient also has a known history of hyperthyroidism with a history of Graves disease with a very low TSH and high free T4. Eventually patient Tapazole dose was increased every 8 hours. Patient's heart rate is much better and her symptoms of anxiety or resolved. Patient was recommended to take Tapazole 10 b.i.d. for three days then 10 daily and repeat TSH free T4 with a few days to follow up with the primary and or endocrinology. Patient's UTI was treated with the IV antibiotics which will be switched to p.o. antibiotics. Condition at Discharge: Stable Final Diagnosis/Problems List 44-year-old female with a known history of Graves disease, anxiety disorder, morbid obesity classII chronic tobacco use disorder initially presented to the hospital with the abdominal pain nausea and vomiting found to have 1. Acute viral gastroenteritis 2. Hyperthyroidism with a history of Graves disease with a low TSH and high free T4 contributing to the symptoms of nausea and vomiting on and anxiety 3. Graves disease 4. UTI , urine culture is pending 5. Transaminitis 6. Morbid obesity classII 7. Chronic tobacco use disorder Discharge Disposition: Home SNF Discharge Will this Physician continue t: No Discharge Instruct/Medications Diet: Cardiac 2g Na,low cholest Activity: No Restrictions, As Tolerated Follow Up/Referral: Follow up with the PCP in 5-7 days with a repeat TSH, free T4 Follow up with the endocrinology in 1-2 weeks Medications: Keflex as prescribed. New Medications: Cephalexin Monohydrate (Cephalexin) 500 Mg Cap 1 CAP PO TID for 5 Days, #15 CAP Scheduled Bupropion Hcl (Wellbutrin Sr), 150 TAB PO BID, (Reported) Cephalexin Monohydrate (Cephalexin), 1 CAP PO TID Promethazine Hcl (Promethazine Hcl), 1 TAB PO Q6HPRN, (Reported) Miscellaneous Medications Tirzepatide (Zepbound), 2.5 MG SC, (Reported) Discharge Statement: "Patient was advised to return to the ER or call 911 if any headaches, dizziness, shortness of breath, chest pain, abdominal pain, bleeding, fevers, or worsening of medical condition. Patient was counseled about treatment plan, medications, possible side effects, patientverbalized understanding. All questions were answered to the best of my ability. This discharge took greater then 30 minutes in planning, reviewing documentation, counseling the patient, and discussing with other team members." ASSESSMENT ASSESSMENT Assessment 44-year-old female with a known history of Graves disease, anxiety disorder, morbid obesity classII chronic tobacco use disorder initially presented to the hospital with the abdominal pain nausea and vomiting found to have 1. Acute viral gastroenteritis 2. Hyperthyroidism with a history of Graves disease with a low TSH and high free T4 contributing to the symptoms of nausea and vomiting on and anxiety 3. Graves disease 4. UTI , urine culture is pending 5. Transaminitis 6. Morbid obesity classII 7. Chronic tobacco use disorder Date of Service: Feb 19, 2025 Billing Provider: CADENCE PHAM MD Common Visit Codes: [id number] DISCH DAY >30min CADENCE PHAM MD Feb 19, 2025 14:24
[2025-02-19 15:11] VITALS: BP 114/64; PULSE 104; TEMP 36.2
[2025-02-19] MEDS: methIMAzole 5 MG TAB PO ONE (16:03)
== END 2025-02-19 16:40 | disposition home or self-care (01) | DRG 249 ==
LOC: EDBD 16:45 → ER 16:45 → EDSEX 16:45 → OVERFLOW 22:03 → WEST WING 23:15
PROVIDERS: ADMIT Internal Medicine; ATTEND Internal Medicine
DX: A08.4 Viral intestinal infection, unspecified (principal); N30.01 Acute cystitis with hematuria; E05.00 Thyrotoxicosis with diffuse goiter without thyrotoxic crisis or storm; E66.01 Morbid (severe) obesity due to excess calories; F17.210 Nicotine dependence, cigarettes, uncomplicated; Z20.822 Contact with and (suspected) exposure to COVID-19; R73.03 Prediabetes; R74.01 Elevation of levels of liver transaminase levels; F41.9 Anxiety disorder, unspecified; K44.9 Diaphragmatic hernia without obstruction or gangrene; E86.0 Dehydration; Z68.38 Body mass index [BMI] 38.0-38.9, adult; K29.70 Gastritis, unspecified, without bleeding; K21.9 Gastro-esophageal reflux disease without esophagitis
CPT/HCPCS: 36415; 74176; 80048; 80053; 81001; 83036; 83690; 84439; 84443; 85025; 87086; 87426; 87804; 93005; 96361; 96374; G0378; J1885; J2405; J2470

== ENCOUNTER 2025-02-28 09:18 | Outpatient (CLI) | payer MEDICAID ==
[~2025-02-28 09:18] MED LIST: BUPR150T8 PO; CEPH500C PO; PROM25TA10 PO; PROP1TAB53 PO; TIRZ2.5I2 SC
[2025-02-28 11:08] LABS: Cholesterol 147 mg/dL (< 200)
[2025-02-28 11:10] LABS: HDL Cholesterol 45 mg/dL (40-59)
== END 2025-02-28 17:00 | disposition home or self-care (01) ==
LOC: LAB 09:18
PROVIDERS: ATTEND Nurse Practitioner
DX: E05.11 Thyrotoxicosis with toxic single thyroid nodule with thyrotoxic crisis or storm (principal)
CPT/HCPCS: 36415; 82465; 83718; 83721; 84439; 84443; 85048

== ENCOUNTER 2025-06-25 08:47 | Emergency (ER) | payer MEDICAID ==
[~2025-06-25] VITALS: Ht 149.9 cm; Wt 84.0 kg
[2025-06-25] MEDS: SODIUM CHLORIDE 0.9% 1,000 ML IV ONE (09:00)
--- NOTE | 2025-06-25 09:06 | ED.PDOC ---
History of Present Illness HPI Comments This is a 45 year old female DILAN presenting to the ED with chief complaint of lightheadedness. Patient reports that she has been experiencing a persistent migraine with associated lightheadedness for the past 7 days along with associated N/V/D and epigastric burning since 3am this morning. EMS relays patient was noted to have a heart rate in the 120s initially on scene, improving to 100s along with a BG of 112. Patient provided 4mg of Zofran en route with relief in nausea noted. Patient denies any chest pain, SOB, fever, chills, syncope, dysuria, or flank pain. Chief Complaint: Nausea/Vomiting Time Seen by MD: 09:03 Primary Care Provider: Out of town Reviewed Notes: Nurses Notes, Circulation Director Notes, Medications, Allergies Allergies: Coded Allergies: NO KNOWN ALLERGIES (Unverified , 02/01/19) Home Meds Active Scripts Propranolol HCl (Propranolol Hydrochloride) 20 Mg Tab, 20 MG PO BID, #60 TAB Prov:CADENCE PHAM MD 02/22/25 Cephalexin Monohydrate (Cephalexin) 500 Mg Cap, 1 CAP PO TID for 5 Days, #15 CAP Prov:CADENCE PHAM MD 02/19/25 Reported Medications Bupropion Hcl (Wellbutrin Sr) 150 Mg Tab, 150 TAB PO BID, #60 TAB 5 Refills 02/17/25 Promethazine Hcl (Promethazine Hcl) 25 Mg Tab, 1 TAB PO Q6HPRN, #20 TAB 02/17/25 Tirzepatide (Zepbound) 2.5 Mg/0.5 Ml Inj, 2.5 MG SC, INJ 02/17/25 Information Source: Patient, Emergency Med Personnel Mode of Arrival: EMS Severity: Moderate Timing: Days Duration: Since onset Prehospital treatment: None Past Medical History PAST MEDICAL HISTORY: Anxiety, Thyroid Past Medical History (Other): Grave's Disease Surgical History: CLOTH CUTTER History: No Pertinent CLOTH CUTTER History Family History Family History: Reviewed,noncontributory to illness, Unknown Social History Smoker: Cigarettes Alcohol: Denies ETOH Use Drugs: Denies Drug Use Lives In: Home Constitutional: denies: chills, diaphoresis, fatigue, fever, malaise, sweats, weakness, others EENTM: denies: blurred vision, double vision, ear bleeding, ear discharge, ear drainage, ear pain, ear ringing, eye pain, eye redness, hearing loss, mouth pain, mouth swelling, nasal discharge, nose bleeding, nose congestion, nose pain, photophobia, tearing, throat pain, throat swelling, voice changes, others Respiratory: denies: cough, hemoptysis, orthopnea, SOB at rest, shortness of breath, SOB with excertion, stridor, wheezing, others Cardiovascular: reports: lightheadedness; denies: chest pain, dizzy spells, diaphoresis, Dyspnea on exertion, edema, irregular heart beat, left arm pain, palpitations, PND, syncope, others Gastrointestinal: reports: abdominal pain, diarrhea, nausea, vomiting; denies: abdomen distended, blood streaked bowels, constipated, dysphagia, difficulty swallowing, hematemesis, melena, poor appetite, poor fluid intake, rectal bleeding, rectal pain, others Genitourinary: denies: abnormal vagina bleeding, burning, dyspareunia, dysuria, flank pain, frequency, hematuria, incontinence, pain, , vagina discharge, urgency, others Neurological: reports: headache; denies: dizziness, fainting, left sided numbness, left sided weakness, numbness, paresthesia, pre-existing deficit, right sided numbness, right sided weakness, seizure, speech problems, tingling, tremors, weakness, others Musculoskeletal: denies: back pain, gout, joint pain, joint swelling, muscle pain, muscle stiffness, neck pain, others Integumetry: denies: bruises, change in color, change in hair/nails, dryness, laceration, lesions, lumps, rash, wounds, others Allergic/Immunocompromised: denies: Difficulty Healing, Frequent Infections, Hives, Itching, others Hematologic/Lymphatic: denies: anemia, blood clots, easy bleeding, easy bruising, swollen glands, others Endocrine: denies: excessive hunger, excessive sweating, excessive thirst, excessive urination, flushing, intolerance to cold, intolerance to heat, unexplained weight gain, unexplained weight loss, others Psychiatric: denies: anxiety, bipolar disorder, depression, hopeless, panic disorder, schizophrenia, sleepless, suicidal, others All Other Systems: Reviewed and Negative Physical Exam General Appearance: Moderate Distress, Normal HEENT: Normal ENT Inspection, Pharynx Normal, TMs Normal Neck: Full Range of Motion, Non-Tender, Normal, Normal Inspection Respiratory: Chest Non-Tender, Lungs Clear, No Accessory Muscle Use, No Respiratory Distress, Normal Breath Sounds Cardiovascular: No Edema, No JVD, No Murmur, No Gallop, Normal Peripheral Pulses, Regular Rate/Rhythm Breast Exam: Deferred Gastrointestinal: No Organomegaly, Non Tender, No Pulsatile Mass, Normal Bowel Sounds, Soft Genitalia: Deferred Pelvic: Deferred Rectal: Deferred Extremities: No calf tenderness, Normal capillary refill, Normal inspection, Normal range of motion, Non-tender, No pedal edema Musculoskeletal : Apperance: Normal Neurologic: Alert, director veterinary II-XII nml as Tested, No Motor Deficits, Normal Affect, Normal Mood, No Sensory Deficits Cerebellar Function: NOT DONE Reflexes: NOT DONE Skin: Dry, Normal Color, Warm Peripheral Pulses: 3+ Radial (R), 3+ Radial (L) Lymphatic: No Adenopathy Was a procedure done? Was a procedure done?: No Differential Dx Considerations may include: Anemia Electrolyte imbalance X-Ray, Labs, Meds, VS Vital Signs Date Time Temp Pulse Resp B/P (MAP) Pulse Ox O2 Delivery O2 Flow Rate FiO2 06/25/25 10:00 97.7 117 21 148/84 (105) 98 97.7 06/25/25 09:00 104 06/25/25 09:00 Room Air* 0 21 06/25/25 08:53 98.0 109 18 140/70 97 98.0 Lab Test 06/25/25 10:17 06/25/25 09:15 Range/Units Urine Color Light-yellow Yellow Urine Clarity Clear Clear Urine pH 5.5 5.0-9.0 Urine Specific [place] 1.018 1.001-1.035 Urine Protein Negative Negative Urine Ketones Negative Negative Urine Blood Negative Negative /uL Urine Nitrite Negative Negative Urine Bilirubin Negative Negative Urine Urobilinogen Normal Negative mg/dL Urine Leukocyte Esterase 2+ Negative /uL Urine RBC 4 0 - 4 /hpf Urine Microscopic WBC 3 0-5 /HPF Urine Squamous Epithelial Cells Few <5 /hpf Urine Bacteria None seen None Seen /hpf Urine Mucus Few None Seen Urine Glucose Normal Normal mg/dL White Blood Count 8.2 4.4-10.8 10^3/uL Red Blood Count 4.77 4.0-5.20 10^6/uL Hemoglobin 13.4 12.2-16.2 g/dL Hematocrit 38.5 36.0-46.0 % Mean Corpuscular Volume 80.8 80.0-100.0 fL Mean Corpuscular Hemoglobin 28.2 28.0-32.0 pg Mean Corpuscular Hemoglobin Concent 34.9 32.0-36.0 g/dL Red Cell Distribution Width 13.0 11.8-14.3 % Platelet Count 370 140-450 10^3/uL Mean Platelet Volume 7.6 6.9-10.8 fL Neutrophils (%) (Auto) 59.2 37.0-80.0 % Lymphocytes (%) (Auto) 31.0 10.0-50.0 % Monocytes (%) (Auto) 5.4 0.0-12.0 % Eosinophils (%) (Auto) 4.1 0.0-7.0 % Basophils (%) (Auto) 0.3 0.0-2.0 % Neutrophils # (Auto) 4.8 1.6-8.6 10 ^3/uL Lymphocytes # (Auto) 2.5 0.4-5.4 10 ^3/uL Monocytes # (Auto) 0.4 0-1.3 10 ^3/uL Eosinophils # (Auto) 0.3 0-0.8 10 ^3/uL Basophils # (Auto) 0 0-0.2 10 ^3/uL Nucleated Red Blood Cells 0.2 % Sodium Level 141 136-145 mmol/L Potassium Level 4.3 3.5-5.1 mmol/L Chloride Level 109 H 98-107 mmol/L Carbon Dioxide Level 25 20-31 mmol/L Anion Gap 7 5-15 Blood Urea Nitrogen 13 9-23 mg/dL Creatinine 0.45 L 0.550-1.02 mg/dL Glomerular Filtration Rate Calc 122 >90 mL/min BUN/Creatinine Ratio 28.9 H 10.0-20.0 Serum Glucose 105 74-106 mg/dL Calcium Level 9.5 8.7-10.4 mg/dL Troponin I High Sensitivity 7 </=34 ng/L Current Medications Medications (Trade) Dose Ordered Sig/Lianet Route Start Time Stop Time Status Last Admin Sodium Chloride 1,000 ml @ 1,000 mls/hr Q1H ONCE IV 06/25/25 09:00 06/25/25 09:59 DC 06/25/25 09:00 Patient alert. Complaining of near-syncope. Vitals stable. Answering all questions. Saturation pristine on room air. Moving all extremities. No acute process. Explained to the patient. Was told to follow up with her primary care physician. Was told to come back if there is any problem. Time of 1ST Reevaluation: 10:03 Reevaluation 1ST: Unchanged Patient Education/Counseling: Diagnosis, Treatment Family Education/Counseling: No Family Present SEPSIS Sepsis Screen Physician Orders Head Without Contrast (06/25/25 08:59) Vital Signs Date Time Temp Pulse Resp B/P (MAP) Pulse Ox O2 Delivery O2 Flow Rate FiO2 06/25/25 10:00 97.7 117 21 148/84 (105) 98 97.7 06/25/25 09:00 104 06/25/25 09:00 Room Air* 0 21 06/25/25 08:53 98.0 109 18 140/70 97 98.0 Laboratory Tests Test 06/25/25 09:15 White Blood Count 8.2 10^3/uL (4.4-10.8) Medications Medications Dose Ordered Sig/Lianet Route Start Time Stop Time Status Last Admin Dose Admin Sodium Chloride 1,000 ml @ 1,000 mls/hr Q1H ONCE IV 06/25/25 09:00 06/25/25 09:59 DC 06/25/25 09:00 Departure 1 Departure Time of Disposition: 09:25 Impression: Primary Impression: Autonomic disorder Disposition: 01 HOME / SELF CARE / HOMELESS Condition: Good Discharged With: Self Critical Care Note Critical Care Time?: No Stability Stability form required: No Heart Score Heart Score: Heart Score Response (Comments) Value History N/A 0 EKG N/A 0 Age N/A 0 Risk Factors N/A 0 Troponin N/A 0 Total 0 I personally scribed for AL DOMINGO MD ([email or web address]) on 06/25/25 at 09:06. Electronically submitted by Saeed George ([email or web address]). AL DOMINGO MD Jun 25, 2025 09:06
--- NOTE | 2025-06-25 09:07 | ECG ---
[facility] Test Date: 2025-06-25 Test Time: 09:00:50 Pat Name: YULIANA SWENSON Department: [facility] ED Patient ID: [id number] Room: Gender: F [employer]: salena : 1980 Requested By: AL DOMINGO Order Number: [id number] Reading MD: Milo Avelar Measurements Intervals [place] Rate: 104 P: -21 TN: 149 QRS: 3 QRSD: 89 T: 47 QT: 335 QTc: 441 Interpretive Statements Sinus tachycardia ST elev, probable normal early repol pattern Electronically Signed On 06-25-2025 15:29:32 PST by Milo Avelar Please click the below link to view image of tracing.
--- NOTE | 2025-06-25 10:19 | DVH ---
EXAM: CT HEAD WITHOUT CONTRAST INDICATION: syncope EXAM DATE: 06/25/2025 09:50 AM COMPARISON: None TECHNIQUE: CT of the head without intravenous contrast. Radiation Dose Information: CTDI volume is 22 mGy. Dose-length product is 1004 mGy*cm FINDINGS: There is no evidence of acute intracranial hemorrhage, extra-axial collection, mass effect, midline shift, herniation or hydrocephalus. The ventricles, sulci and cisterns are age appropriate. The gilbert-white differentiation is intact. The visualized paranasal sinuses and mastoid air cells are clear. The surrounding soft tissues and osseous structures are unremarkable. IMPRESSION: 1. No evidence of acute intracranial hemorrhage, mass effect or hydrocephalus. END IMPRESSION:
[2025-06-25 10:32] LABS: Hematocrit 38.5 % (36.0-46.0); Hemoglobin 13.4 g/dL (12.2-16.2); Mean Corpuscular Hemoglobin 28.2 pg (28.0-32.0); Mean Corpuscular Volume 80.8 fL (80.0-100.0); Nucleated Red Blood Cells % 0.2 %
[2025-06-25 10:36] LABS: Potassium 4.3 mmol/L (3.5-5.1); Sodium 141 mmol/L (136-145)
[2025-06-25 10:37] LABS: Anion Gap 7 (5-15); Calcium 9.5 mg/dL (8.7-10.4); Carbon Dioxide 25 mmol/L (20-31)
[2025-06-25 10:41] LABS: Chloride 109 mmol/L (98-107)
[2025-06-25 10:42] LABS: BUN/Creatinine Ratio 28.9 (10.0-20.0); Blood Urea Nitrogen 13 mg/dL (9-23); Glucose 105 mg/dL (74-106)
[2025-06-25 11:35] VITALS: PULSE 108; RESP 18; O2SAT 99
[2025-06-25 11:50] LABS: Urine Protein, UAD Negative (Negative)
[2025-06-25] MEDS: MECLIZINE HCL 25 MG TAB PO ONE (13:58)
[2025-06-25] MEDS: HYDROcodone-ACET 5/325MG TAB PO ONE (13:59)
[2025-06-25 14:08] VITALS: BP 148/83; PULSE 106; RESP 16; TEMP 98; O2SAT 99
== END 2025-06-25 14:08 | disposition home or self-care (01) ==
LOC: EDBD 08:47 → EDUNIT# 08:47 → ER 08:47
DX: G90.9 Disorder of the autonomic nervous system, unspecified (principal); F41.9 Anxiety disorder, unspecified; F17.210 Nicotine dependence, cigarettes, uncomplicated; Z79.899 Other long term (current) drug therapy
CPT/HCPCS: 36415; 70450; 80048; 81001; 84484; 85025; 93005; 96360; 99285; J7030; J8597